=== PATIENT | female | born 1980 | race Caucasian/White ===

== ENCOUNTER 2019-06-24 15:34 | Observation (INO) | payer OTHER ==
[~2019-06-24] VITALS: Ht 154.9 cm; Wt 98.0 kg
[2019-06-24 15:42] VITALS: BP 139/60
[2019-06-24 16:07] LABS: ABSOLUTE BASOPHILS 0.1 thou/uL (0.0-0.2); ABSOLUTE EOSINOPHILS 0.1 thou/uL (0.0-0.7); ABSOLUTE LYMPHOCYTES 2.1 thou/uL (0.8-5.3); ABSOLUTE MONOCYTES 0.5 thou/uL (0.0-1.2); ABSOLUTE NEUTROPHILS 6.7 thou/uL (1.6-8.1); BASOPHILS 0.8 %; EOSINOPHILS 0.7 %; HEMATOCRIT 39.8 % (37.0-47.0); HEMOGLOBIN 13.3 gm/dL (12.0-15.0); LYMPHOCYTES 22.3 %; MCH 29.7 pg (26.0-34.0); MCHC 33.3 g/dL (28.0-37.0); MONOCYTES 5.4 %; MPV 8.6 fl. (7.2-11.1); NUCLEATED RBCS 0 /100WBC; PLATELET COUNT* 335 thou/uL (150-400); POLYS 70.8 %; RBC 4.48 mil/uL (4.20-5.00); RDW-CV 13.9 % (10.5-14.5); WBC 9.4 thou/uL (4.0-11.0)
[2019-06-24 16:08] VITALS: BP 137/72
[2019-06-24 16:33] LABS: CALCIUM 8.6 mg/dL (8.5-10.1); CREATININE 0.7 mg/dL (0.6-1.3); POTASSIUM 3.3 mmol/L (3.5-5.1)
[2019-06-24 16:38] LABS: TOTAL BILIRUBIN 0.2 mg/dL (<0.1-1.0); TOTAL PROTEIN 8.4 g/dL (6.4-8.2)
[2019-06-24 18:50] VITALS: BP 109/72
[2019-06-24 20:00] VITALS: BP 115/70
[2019-06-24 23:54] VITALS: BP 113/61
[2019-06-25 09:00] VITALS: BP 94/59
--- NOTE | 2019-06-25 10:59 | NUR ---
ASSUMED CARE OF PATIENT THIS AM AT 0830. PATIENT IS ALERT AND ORIENTED X 4. SHE SAYS THAT HER PAIN CONTINUES WITH ACTIVITY. PATIENT WAS GIVEN A CLEAR LIQUID DIET. SHE DENIES NAUSEA AND VOMITING. PATIENT IS TO DISCHARGE THIS AM.
[2019-06-25] MEDS ORDERED: NORCO 5-325 TA1 EAC1 PO (11:05)
[2019-06-25 11:06] VITALS: BP 94/59
[2019-06-25 11:12] VITALS: BP 94/59
== END 2019-06-25 11:55 | disposition home or self-care (01) ==
LOC: M.ERS 15:34 → M.SUR 15:34 → M.ERS 16:10 → M.TBA-ER 18:32 → M.2W 18:50
PROVIDERS: Family Medicine; ADMIT Surgery
DX: K35.80 Unspecified acute appendicitis (principal)